=== PATIENT | male | born 2000 | race Caucasian/White ===

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

== ENCOUNTER 2019-01-14 20:44 | Emergency (ER) | payer OTHER ==
[~2019-01-14] VITALS: Ht 177.8 cm; Wt 74.8 kg
== END 2019-01-14 22:34 | disposition home or self-care (01) ==
LOC: ER 20:44
DX: F32.9 Major depressive disorder, single episode, unspecified (principal)
CPT/HCPCS: 99283

== ENCOUNTER 2021-11-05 07:12 | Emergency (ER) | payer OTHER ==
[~2021-11-05] VITALS: Ht 177.8 cm; Wt 74.4 kg
== END 2021-11-05 09:52 | disposition home or self-care (01) ==
LOC: ER 07:12
DX: R55 Syncope and collapse (principal); U07.1 COVID-19; F17.200 Nicotine dependence, unspecified, uncomplicated
CPT/HCPCS: 93005; 93010; 99283-25